=== PATIENT | female | born 1950 | race Hispanic/Latino ===

== ENCOUNTER → 2017-04-28 | Day surgery (SDC) | payer MEDICARE ==
[2017-04-27 11:39] LABS: BASOPHILS % 0.4 % (0.0-1.0); EOSINOPHILS # (AUTO) 0.1 (0.0-0.4); EOSINOPHILS % 1.4 % (0.0-6.0); HEMATOCRIT 40.3 % (34.2-44.1); HEMOGLOBIN 13.1 g/dL (12.0-16.0); LYMPHOCYTES # (AUTO) 1.9 (1.0-3.2); LYMPHOCYTES % 26.3 % (18.0-39.1); MEAN CORPUSCULAR HEMOGLOBIN 29.1 pg (28-32); MEAN CORPUSCULAR HGB CONC 32.5 g/dL (31-35); MEAN CORPUSCULAR VOLUME 89.6 fL (81-99); MONOCYTES # (AUTO) 0.5 (0.2-0.8); MONOCYTES % 6.4 % (4.4-11.3); NEUTROPHILS # (AUTO) 4.7 (2.1-6.9); NEUTROPHILS % 65.2 % (38.7-80.0); PLATELET COUNT 182 x10e3/uL (140-360); RED CELL DISTRIBUTION WIDTH 14.1 % (11.7-14.4)
--- NOTE | 2017-04-27 12:01 | Diagnostic Imaging Report ---
PROCEDURE: Frontal and lateral views of the chest. COMPARISON: None. INDICATIONS: PRE OPERATIVE CHEST X-RAY FOR FOOT SURGERY FINDINGS: Lines/tubes: None. Lungs: The lungs are well inflated and clear. There is no evidence of pneumonia or pulmonary edema. Pleura: There is no pleural effusion or pneumothorax. Heart and mediastinum: The heart and the mediastinum are normal. Bones: No acute bony abnormality. Upper abdomen: No free air under the diaphragm. Surgical clips overlie the abdomen on lateral view. IMPRESSION: No acute cardiopulmonary disease. Dictated by: Ronald Hill M.D. on 04/27/2017 at 12:10 Electronically approved by: Ronald Hill M.D. on 04/27/2017 at 12:10
[~2017-04-28] MED LIST: ACETAMINOPHEN 1000 MG/100 ML IV ONE; ADVIL PO; BUPIVACAINE HCL 0.5% INJ 30 ML VIAL INJ ONE; CLINDAMYCIN PHOS 900MG/ D5W 50 50 ML IV ONE; DEXAMETHASONE SOD PHOS INJ 4 MG/ML VIAL ONE; FENTANYL CITRATE/PF 100MCG/2 ML INJ ONE; KETOROLAC TROMETHAMINE 30 MG/ML VIAL ONE; LIDOCAINE HCL 2% LOCAL INJ 5 ML SDV VIAL INJ ONE; MIDAZOLAM HCL 2 MG/2 ML VIAL ONE; ONDANSETRON HCL INJ 2 MG/ML VIAL ONE; PROPOFOL IV EMULSION 10 MG/ML 20 ML VIAL ONE; SEVOFLURANE INHAL SOLN 250 ML PEN BTL ONE; TYLENOL PO
--- OUTSIDE RECORDS SUMMARY | 2017-04-28 06:31 | XMS REPORT ---
Author [facility] Address Unknown Phone Unavailable Care Team Providers [facility] [place] Worker Name Role Phone Diana ROSS Unavailable Unavailable Problems This patient has no known problems. Allergies, Adverse Reactions, Alerts This patient has no known allergies or adverse reactions. Medications This patient has no known medications. Results Test Description Test Time Test Comments Text Results Atomic Results Result Comments CHEST 2 VIEWS [place] [address] Patient Name: ROBBY ZAMUDIO MR #: [id number] : 1950 Age/Sex: 66/F Req #: [id number] Adm Physician: Ordered by: Diana ROSS DPM Report #: [id number] Location: OR Room/Bed: Procedure: [id number] DX/CHEST 2 VIEWS Exam Date: Exam Time: REPORT STATUS: Signed PROCEDURE: Frontal and lateral views of the chest. COMPARISON: None. INDICATIONS: PRE OPERATIVE CHEST X-RAY FOR FOOT SURGERY FINDINGS: Lines/tubes: None. Lungs: The lungs are well inflated and clear. There is no evidence of pneumonia or pulmonary edema. Pleura: There is no pleural effusion or pneumothorax. Heart and mediastinum: The heart and the mediastinum are normal. Bones: No acute bony abnormality. Upper abdomen: No free air under the diaphragm. Surgical clips overlie the abdomen on lateral view. IMPRESSION: No acute cardiopulmonary disease. Dictated by: Ronald Gonzalez M.D. on 03/2017 at 12:10 Electronically approved by: Ronald Gonzalez M.D. on 04/27 at 12:10 Dictated By: RONALD GONZALEZ MD 1210 Transcribed By: KAILEY on 04/27/17 1210 COPY TO: Diana ROSS DPM
--- NOTE | 2017-04-28 14:07 | Operative Report ---
DATE OF PROCEDURE: April 28, 2017 DATE OF : 1950 PREOPERATIVE DIAGNOSES 1. 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 2. 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 POSTOPERATIVE DIAGNOSES 1. 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 2. 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 PLANNED PROCEDURES 1. Excision of left 2nd interspace neuroma. 2. Excision of left 3rd interspace neuroma. SURGEON: Jeanette Valle DPM DOG SITTER: Shawna Rob DPM ANESTHESIA: General with a postoperative block consisting of 15 mL of 0.5% Marcaine plain. HEMOSTASIS: Pneumatic ankle tourniquet set at 250 mmHg for a total time of approximately 30 minutes. MATERIALS: 3-0 Vicryl and 4-0 Prolene. ESTIMATED BLOOD LOSS: Less than 10 mL. PATHOLOGY: None. PROCEDURE NOTE: Patient was seen in the preoperative waiting room where the correct procedure and site was identified. The patient was brought into the operating room and placed on the operating table in the supine position. General anesthesia was initiated at this time. A well-padded pneumatic tourniquet was placed about the patient's left ankle. The left foot and ankle were scrubbed, prepped, and draped in the usual aseptic manner. The left foot was exsanguinated with an Esmarch bandage and the pneumatic ankle tourniquet was inflated to 250 mmHg for a total time of approximately 30 minutes. Attention was directed to the dorsal aspect of the patient's left foot where a 4 cm linear incision was made directly over the 3rd interspace. The incision was carried through the subcutaneous tissues, them from deeper underlying structures. All vital neurovascular structures were identified, retracted medially and laterally, and all bleeders were cauterized or ligated as deemed necessary. The incision was carried through the subcutaneous tissue to allow for good visualization of the deep transverse metatarsal ligament, which was cut with a Littler scissors. This allowed for good visualization of the interspace nerve, which was noted to be tortuous, aggravated, and inflamed. The neuroma was dissected distally to separate the proper digital branches, which were cut distally, dissected proximally, pulled distally, cut at the most proximal end, and allowed to retract into the foot. The wound was then flushed with copious amounts of sterile saline. Deep tissue was reapproximated with 3-0 Vicryl, subcutaneous tissue with 3-0 Vicryl, and the skin was closed using a running interlocking stitch with 4-0 Prolene. Next, the same procedure was performed to the 2nd interspace. A 4 cm linear incision was made over the 2nd interspace. The incision was carried through the subcutaneous tissues, them from deeper underlying structures. All vital neurovascular structures were identified, retracted medially and laterally, and all bleeders were cauterized or ligated as deemed necessary. The incision was then carried through subcutaneous tissue down to the level of the deep transverse metatarsal ligament, which was incised to allow for good visualization of the neuroma. The neuroma was inflamed, not to the degree of the 3rd interspace neuroma. The decision was made to excise it. The dissection was carried distally to allow for good visualization of the proper digital branches, which were cut and the neuroma was dissected proximally, pulled distally, cut proximally, and allowed to retract into the foot. The wound was then flushed with copious amounts of sterile saline. Deep tissue was reapproximated with 3-0 Vicryl, subcutaneous tissue with 3-0 Vicryl, and the skin was closed utilizing a running interlocking stitch with 4-0 Prolene. Patient tolerated the procedure and anesthesia well. Patient was transferred to postoperative recovery unit with vital signs stable and vascular status intact. The patient was monitored there for a short period of time before being sent home with the following written and oral instructions; 1. Keep the dressing clean, dry, and intact. 2. The patient is to remain partial weightbearing in a postop shoe and to avoid excessive ambulation until being seen in the office. 3. The patient was given the office number and instructed to contact us if any problems should arise. Job#: [id number] PAT
== END | disposition home or self-care (01) ==
LOC: OR 06:29
PROVIDERS: ATTEND Podiatrist Foot & Ankle Surgery
DX: G57.62 Lesion of plantar nerve, left lower limb (principal); Z01.810 Encounter for preprocedural cardiovascular examination; Z01.812 Encounter for preprocedural laboratory examination; Z01.818 Encounter for other preprocedural examination
CPT/HCPCS: 28080 ×2; 36415; 71046; 85025; 93005; J1100; J1885; J2001; J2250; J2405

== ENCOUNTER → 2018-04-13 | Day surgery (SDC) | payer MEDICARE ==
[2018-04-11 13:14] LABS: BASOPHILS # (AUTO) 0.1 (0.0-0.1); BASOPHILS % 0.6 % (0.0-1.0); EOSINOPHILS # (AUTO) 0.1 (0.0-0.4); HEMATOCRIT 41.1 % (34.2-44.1); HEMOGLOBIN 13.2 g/dL (12.0-16.0); LYMPHOCYTES # (AUTO) 2.7 (1.0-3.2); LYMPHOCYTES % 30.4 % (18.0-39.1); MEAN CORPUSCULAR HEMOGLOBIN 29.2 pg (28-32); MEAN CORPUSCULAR HGB CONC 32.1 g/dL (31-35); MEAN CORPUSCULAR VOLUME 90.9 fL (81-99); MONOCYTES # (AUTO) 0.6 (0.2-0.8); MONOCYTES % 6.8 % (4.4-11.3); NEUTROPHILS # (AUTO) 5.4 (2.1-6.9); NEUTROPHILS % 60.9 % (38.7-80.0); PLATELET COUNT 169 x10e3/uL (140-360); RED BLOOD COUNT 4.52 x10e6/uL (3.6-5.1); RED CELL DISTRIBUTION WIDTH 14.4 % (11.7-14.4)
[~2018-04-13] MED LIST changes: -ACETAMINOPHEN 1000 MG/100 ML IV ONE; +BENICAR20 MG PO; +BUPIVACAINE HCL 0.5% 10ML MPF VIAL INJ ONE; -BUPIVACAINE HCL 0.5% INJ 30 ML VIAL INJ ONE; +CALCIUM CARBON500 MG PO; +CLINDAMYCIN PHOS 900MG/ 50ML 50 ML IV ONE; -CLINDAMYCIN PHOS 900MG/ D5W 50 50 ML IV ONE; +GLYCOPYRROLATE INJ 1MG/ 5 ML SYR ONE; -KETOROLAC TROMETHAMINE 30 MG/ML VIAL ONE; -ONDANSETRON HCL INJ 2 MG/ML VIAL ONE; +ONDANSETRON HCL INJ 2MG/ML 2ML 2 MG/ML VIAL ONE
[2018-04-13 08:20] VITALS: BP 135/78
--- NOTE | 2018-04-13 08:39 | Operative Report ---
DATE OF PROCEDURE: April 13, 2018 PREOPERATIVE DIAGNOSES 1. 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 2. 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 POSTOPERATIVE DIAGNOSES 1. 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 2. 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 OPERATIVE PROCEDURES 1. Excision of neuroma, 2nd interspace, right. 2. Excision of neuroma, 3rd interspace, right. DETAILS OF PROCEDURE: The patient was placed on the OR table in the supine position. The right lower extremity was prepped and draped in the usual manner. A general anesthetic was administered, and hemostasis accomplished using a pneumatic cuff set at 350 mmHg at thigh level. PROCEDURE #1: Excision of neuroma, 2nd interspace, right. An incision approximately 2 cm in length was made in the interspace between the 2nd and 3rd metatarsal head. The incision was deepened. Blood vessels were either ligated or retracted. The hypertrophied nerve was identified and isolated. Both distal branches were isolated and excised. The neuroma was isolated between the 2nd and 3rd metatarsal head and it was resected in toto at that time. Following the procedure, the wound was flushed with sterile saline solution. Subcutaneous tissue closed with 3-0 Vicryl and the skin was closed with 4-0 Vicryl subcuticularly. PROCEDURE #2: Exactly the same as procedure #1, except done in the 3rd interspace of the right foot. Following the procedure, 6 mL of 0.5 Marcaine and 1 mL of Decadron were injected. A sterile compression dressing was then applied. At this time, the pneumatic cuff was released and reflex hyperemia was observed to all digits. The patient tolerated the procedure and anesthesia well, and left the OR to recovery in good condition with vital signs stable. Job#: [id number] OR
== END | disposition home or self-care (01) ==
LOC: OR 05:12
PROVIDERS: ATTEND Podiatrist Foot & Ankle Surgery
DX: G57.61 Lesion of plantar nerve, right lower limb (principal); I10 Essential (primary) hypertension; Z88.0 Allergy status to penicillin; Z88.2 Allergy status to sulfonamides; Z91.040 Latex allergy status; Z01.810 Encounter for preprocedural cardiovascular examination; Z01.812 Encounter for preprocedural laboratory examination; Z85.820 Personal history of malignant melanoma of skin
CPT/HCPCS: 28080 ×2; 36415; 85025; 93005; J1100; J2001; J2250; J2405; J2704; J3490